=== PATIENT | male | born 1955 | race Caucasian/White ===

== ENCOUNTER → 2017-08-30 | Outpatient (CLI) | payer OTHER ==
[~2017-08-30] MED LIST: ADVAIR HFA; ASPIRIN325 PO; BUTRANS1 EAC2 TD; BUTRANS1 EAC3 TD; BUTRANS1 EAC4 TRANSDERM; BUTRANS1 EACH TRANSDERM; CYMBALTA60 MG PO; DUONEB 2.5-0.5 M3 ML INH; DURAGESIC1 EACH TRANSDERM; FENOFIBRATE160 MG PO; FOLIC ACID1 MG PO; FUROSEMIDE 40 M40 M1 PO; LANTUS100 UNIT/M SUBQ; LISINOPRIL5 MG PO; LOPRESSOR50 PO; LYRICA 50 MG50 MG PO; NORVASC10 MG PO; NOVOLOG100 UNIT/1 SUBQ; PLAVIX 75 MG TA75 M1 PO; SPIRIVA18 MCG INH; TREXALL5 MG PO; VALIUM5 MG PO; VICTOZA0.6 MG/0.1 SUBQ; VOLTAREN GEL 1100 GM TOP; ZANAFLEX4 MG PO
--- NOTE | 2017-09-01 08:15 | PAINCON ---
[address] [address] PAIN MANAGEMENT CONSULTATION Name: NASH TRUJILLO [id number] Admission: 08/30/17 Attend Phys: Rosa M Simon Discharge: Date of : 59 Report #: [id number] THIS REPORT FOR: //name// CC: Chay Grimes The patient is a 61-year-old gentleman being treated for lumbar spondylosis, myofascial pain requiring high risk complex medication management. Last seen in the pain clinic, 07/05/2017. 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 Because of the Plavix, NSAID agents are contraindicated. Last visit, we increased Butrans from 15 to 20 mcg q.7 days. We are using Voltaren gel topically, Cymbalta and Lyrica as co-analgesics. He returns to pain clinic today, noting pain continues to be problematic, right greater than left hip. He does have some tenderness in the left flank. There are some discrete trigger points noted here. The patient overall rates his pain 1-9 on VAS depending on activity. He feels there was no change, increasing from 15-20 mcg on the Butrans patch. The pain in the left flank and upper thoracic paravertebral muscles is "new." He says it feels like a knife, no specific antecedent injury or activity. He continues to go to the gym twice a week, though states he can only get about 5-10 minutes on the treadmill. PHYSICAL EXAMINATION: GENERAL: Shows 6 feet tall, 348-pound gentleman, BMI is approximately 50 kilograms per meter squared. VITAL SIGNS: He has COPD and is oxygen dependent, currently 3 liters nasal cannula yields 93% oxygen saturation. Pulse is 93, respirations 20, blood pressure /58. MUSCULOSKELETAL: Rises from chair using armrests, again trigger points noted in the left thoracic paravertebral muscles. Lower extremity strength is symmetric. Gait is antalgic. We reviewed the fact that opiate medications are being used to provide analgesia adequate to support activities of daily living, not attempting to achieve a specific pain score on the 0-10 Visual Analog Scale. The current opiate medications are providing sufficient analgesia to allow the patient to participate in activities of daily living. The patient is not exhibiting any aberrant behavior suggestive of drug diversion. The patient is not having any adverse reactions to medications. The patient is not suffering from daytime somnolence or mental acuity changes. The patient is managing opiate-induced constipation with appropriate peop-foz-rswhufc agents and dietary considerations. The patient was counseled on concern for caution with operating a motor vehicle [place] [address] PAIN MANAGEMENT CONSULTATION Name: NASH TRUJILLO [facility] [id number] Admission: 08/30/17 Attend Phys: Rosa M Simon Discharge: Date of : 59 Report #: [id number] A physical exam was performed and the patient's functional status was evaluated. All patients with back pain were advised against the bed rest greater than 4 days and were advised to return to normal activities. Pain score assessment was noted and the treatment plan was reviewed with the patient. All current medications, both prescribed and OTC were reviewed and reconciled on the electronic medical record. Tobacco screening was accomplished and smoking cessation was advised when indicated. BMI was noted and diet/exercise modification was recommended for all patients following outside normal parameters. I reviewed with the patient today their responsibilities to safeguard prescription medications, reviewed their responsibility to utilize medications only as prescribed by the physician. They are to seek and receive pain medications only from 1 physician group ( [facility]). They are to use 1 pharmacy and keep the clinic informed if they change pharmacies. Their responsibilities include making followup visits in a timely fashion and to avoid abrupt discontinuation of medication usage. Their responsibilities further include bringing their medications (bottles from the pharmacy with residual pills) to the visit for possible confirmation of pill counts and the patient understands it is their responsibility to submit to random drug screens to ensure both that the medications prescribed are present, and that no other controlled substances are present. All prescriptions provided today were generated electronically. ASSESSMENT: Chronic pain syndrome, requiring high risk complex medication management; history of lumbar spondylosis; new component of myofascial pain with trigger points in the left thoracic paravertebral muscles and superior lumbar paravertebral muscles on left, requiring high risk complex medication management. RECOMMENDATION: 1. We will drop Butrans back from 20 to 15 mcg q.7 days. It seems superfluous to use a higher dose with no change in efficacy. Continue Voltaren gel topically, Cymbalta and Lyrica. Encouraged treadmill use. We will seek authorization for trigger point injections next week. 2. We will add tizanidine low dose 4 mg half to one tablet t.i.d. for spasm, limit 30 tablets. 3. Follow up in 1-2 weeks for trigger point injection or 2 months for medication management. <ELECTRONICALLY SIGNED> By: Harris Grimes DO 09/01/17 0815 0748 [id number] Lisbet Grimes DO /nt
== END ==
LOC: M.PC 02:02
DX: M47.896 Other spondylosis, lumbar region (principal); M79.1 Myalgia; E66.9 Obesity, unspecified; G89.4 Chronic pain syndrome; Z79.899 Other long term (current) drug therapy; Z86.718 Personal history of other venous thrombosis and embolism; Z87.09 Personal history of other diseases of the respiratory system

== ENCOUNTER → 2017-09-27 | Outpatient (CLI) | payer OTHER ==
--- NOTE | 2017-10-02 07:21 | PAINCON ---
[facility] [address] [place] [address] PAIN MANAGEMENT CONSULTATION Name: NASH TRUJILLO Room: [facility] Ashley#: [id number] Admission: 09/27/17 Attend Phys: Rosa M Simon Discharge: Date of : 59 Report #: [id number] THIS REPORT FOR: //name// CC: Chay Grimes The patient is a 61-year-old gentleman prior seen for symptomatic lumbar spondylosis, myofascial pain requiring high risk complex medication management. Last visit on 08/30/2017. Continue patient on baseline medication including Butrans 20 mcg q. 7 days and Voltaren gel topically. The patient also takes Cymbalta and Lyrica. He returns to the pain clinic today noting overall he was doing very well. Rates his pain a 2 on a VAS. Pain is primarily in the middle of the back and bothers him off and on, but states he is much more functional with current medications We reviewed the fact that opiate medications are being used to provide analgesia adequate to support activities of daily living, not attempting to achieve a specific pain score on the 0-10 Visual Analog Scale. The current opiate medications are providing sufficient analgesia to allow the patient to participate in activities of daily living. The patient is not exhibiting any aberrant behavior suggestive of drug diversion. The patient is not having any adverse reactions to medications. The patient is not suffering from daytime somnolence or mental acuity changes. The patient is managing opiate-induced constipation with appropriate fmfw-lgf-rbjrdxm agents and dietary considerations. The patient was counseled on concern for caution with operating a motor vehicle while using opiate medications. A physical exam was performed and the patient's functional status was evaluated. All patients with back pain were advised against the bed rest greater than 4 days and were advised to return to normal activities. Pain score assessment was noted and the treatment plan was reviewed with the patient. All current medications, both prescribed and OTC were reviewed and reconciled on the electronic medical record. Tobacco screening was accomplished and smoking cessation was advised when indicated. BMI was noted and diet/exercise modification was recommended for all patients following outside normal parameters. I reviewed with the patient today their responsibilities to safeguard prescription medications, reviewed their responsibility to utilize medications only as prescribed by the physician. They are to seek and receive pain medications only from 1 physician group ( [facility]). They are to use 1 pharmacy and keep the clinic informed if they change pharmacies. Their responsibilities include making followup visits in a timely fashion and to avoid abrupt discontinuation of medication usage. Their responsibilities further include bringing their medications (bottles from the pharmacy with residual pills) to the visit for possible confirmation of pill counts and the patient understands it is their responsibility to submit to [place] [address] PAIN MANAGEMENT CONSULTATION Name: NASH TRUJILLO [facility] Ramirez#: [id number] Admission: 09/27/17 Attend Phys: Rosa M Simon Discharge: Date of : 59 Report #: [id number] ensure both that the medications prescribed are present, and that no other controlled substances are present. All prescriptions provided today were generated electronically. PHYSICAL EXAMINATION: Shows an obese 61-year-old gentleman, BMI is 46 kilograms per meter squared, 6 feet tall and ____ pounds. Oxygen saturation is 90% on 2 liters nasal cannula, blood pressure 103/60, pulse 97 and respirations 22. Rises from chair using armrest. Axial back pain with diffuse widespread tenderness in the muscle groups. No discrete trigger points are noted at this time. Gait is tandem. The patient notes his insurance company will not pay for generic Voltaren gel (?). I will simply renew all the prescription with dispense as written indicated. Otherwise with the patient stable on baseline medication, we will renew Butrans 20 mcg q. 7 days and tizanidine 4 mg p.r.n., Cymbalta and Lyrica prescriptions unchanged. Follow up in 2 months for reevaluation. <ELECTRONICALLY SIGNED> By: Harris Grimes DO 10/02/17 0721 1533 [id number] Grimes DO /nt
== END ==
LOC: M.PC 01:39
DX: M47.896 Other spondylosis, lumbar region (principal); M79.1 Myalgia

== ENCOUNTER → 2017-10-25 | Outpatient (CLI) | payer OTHER ==
--- NOTE | 2017-10-26 10:21 | PAINCON ---
[address] [address] PAIN MANAGEMENT CONSULTATION Name: NASH TRUJILLO Room: [facility] Ashley#: [id number] Admission: 10/25/17 Attend Phys: Rosa M Simon Discharge: Date of : 59 Report #: [id number] THIS REPORT FOR: //name// CC: Chay Grimes DATE OF SERVICE: 10/25/2017 HISTORY OF PRESENT ILLNESS: The patient is a 62-year-old gentleman being treated for lumbar spondylosis, lumbosacral spondylosis without myelopathy or radiculopathy, axial back pain requiring complex medication management. Last seen in the pain clinic on 09/27/2017. The patient was continued on Butrans 20 mcg, Cymbalta, Lyrica and tizanidine. The patient returns to the pain clinic today. He notes pain continues to be problematic in his legs. He can ride a stationary bike and/or walk on the treadmill about 5 minutes, which he does both devices twice a day. While the patient has been stable on baseline medication, unfortunately his insurance carrier has seen fit to deny coverage for Butrans. We had a prolonged visit today, greater than 25 minutes was spent with the patient, 50% of this time spent reviewing therapeutic options, discussing current risks, benefits with medication management. As the rather robust opiate listed as possible replacement agents, I am uncomfortable with nearly all of them as they are significantly stronger mu receptor opiate agonist than buprenorphine. Ultimately, we have elected to trial rotating to a fentanyl transdural (Duragesic patch) at 12 mcg q.72 hours. We will continue tizanidine 4 mg 1/2-1 tablet 3 times a day for spasm, Lyrica 50 mg t.i.d. and Cymbalta 60 mg daily. We reviewed the fact that opiate medications are being used to provide analgesia adequate to support activities of daily living, not attempting to achieve a specific pain score on the 0-10 Visual Analog Scale. The current opiate medications are providing sufficient analgesia to allow the patient to participate in activities of daily living. The patient is not exhibiting any aberrant behavior suggestive of drug diversion. The patient is not having any adverse reactions to medications. The patient is not suffering from daytime somnolence or mental acuity changes. The patient is managing opiate-induced constipation with appropriate wtps-fcu-yabtpkg agents and dietary considerations. The patient was counseled on concern for caution with operating a motor vehicle while using opiate medications. A physical exam was performed and the patient's [place] [address] PAIN MANAGEMENT CONSULTATION Name: NASH TRUJILLO Room: [facility]#: [id number] Admission: 10/25/17 Attend Phys: Rosa M Simon Discharge: Date of : 59 Report #: [id number] All patients with back pain were advised against the bed rest greater than 4 days and were advised to return to normal activities. Pain score assessment was noted and the treatment plan was reviewed with the patient. All current medications, both prescribed and OTC were reviewed and reconciled on the electronic medical record. Tobacco screening was accomplished and smoking cessation was advised when indicated. BMI was noted and diet/exercise modification was recommended for all patients following outside normal parameters. I reviewed with the patient today their responsibilities to safeguard prescription medications, reviewed their responsibility to utilize medications only as prescribed by the physician. They are to seek and receive pain medications only from 1 physician group ( [facility]). They are to use 1 pharmacy and keep the clinic informed if they change pharmacies. Their responsibilities include making followup visits in a timely fashion and to avoid abrupt discontinuation of medication usage. Their responsibilities further include bringing their medications (bottles from the pharmacy with residual pills) to the visit for possible confirmation of pill counts and the patient understands it is their responsibility to submit to random drug screens to ensure both that the medications prescribed are present, and that no other controlled substances are present. All prescriptions provided today were generated electronically. PHYSICAL EXAMINATION: GENERAL: Shows a 62-year-old gentleman, supplemental oxygen at 2 liters per minute yielding oxygen saturation of 98%. Morbidly obese, 6 feet tall, 343 pounds, BMI is 46.5 kilograms per meter squared. VITAL SIGNS: Blood pressure 128/60, pulse 90, respirations 20. MUSCULOSKELETAL: Uses a walker for ambulation, difficult time rising from the chair. Diffuse tenderness across the low back and the lumbar facet pain is exacerbated with rotation and side bending. Lower extremity strength is diminished, but symmetric. Straight leg raise negative. ASSESSMENT: Symptomatic lumbar and lumbosacral spondylosis without myelopathy or radiculopathy, axial back pain, requiring complex medication management. RECOMMENDATION: Prolonged discussion with the patient today about therapeutic options. We will trial Duragesic 12 mcg q.72 hours along with baseline medication including Lyrica, Cymbalta and tizanidine. The patient was discharged in good and stable condition after a prolonged visit, greater than 50% of the 25-minute visit was spent counseling the patient. <ELECTRONICALLY SIGNED> By: Harris Grimes DO 10/26/17 1021 1227 [id number] Lisbet Grimes DO /nt
== END ==
LOC: M.PC 03:37
DX: M47.817 Spondylosis without myelopathy or radiculopathy, lumbosacral region (principal); M54.9 Dorsalgia, unspecified; Z79.899 Other long term (current) drug therapy

== ENCOUNTER → 2017-11-22 | Outpatient (CLI) | payer OTHER ==
--- NOTE | 2017-11-24 09:51 | PAINCON ---
[address] [address] PAIN MANAGEMENT CONSULTATION Name: NASH TRUJILLO Room: [facility]#: [id number] Admission: 11/22/17 Attend Phys: Rosa M Simon Discharge: Date of : 59 Report #: [id number] THIS REPORT FOR: //name// CC: Chay Grimes DATE OF SERVICE: 11/22/2017 The patient is a 62-year-old gentleman being treated for lumbar spondylosis without myelopathy, SI joint dysfunction, chronic axial back pain requiring complex medication management. Last seen in pain clinic 10/25/2017. We rotated from Butrans to Duragesic 12 mcg per insurance's request. He returns to pain clinic today noting that this has actually been fairly efficacious. He notes he was able to walk about [facility] through all these, which for him had been impossible. He does use oxygen 3 liters per minute supplementation. At long last, he is now 28 days a nonsmoker. He does have significant coronary artery disease, in fact was disabled secondary to same. He is morbidly obese with a BMI of 46.2 kilograms per meter squared. He has a fairly large ventral hernia at the inferior aspect of his sternotomy incision. He notes his subjective pain score is 5 on VAS. PHYSICAL EXAMINATION: Shows 6-foot tall, 340-pound gentleman. As noted, BMI is 46.2 kilograms per meter squared. Blood pressure 138/66, pulse 85, respirations 20. Alert and oriented to person, place and time, judged to be a reasonable historian. Supplemental oxygen at 3 liters yields 94% saturation. He rise from the chair using the armrest. Has diffuse tenderness across the low back. No discrete trigger points are noted. Lumbar flexion is limited. Gait is modestly antalgic. Tender over the SI joints with some associated low back pain. Positive Angie test. Pelvic distraction is difficult due to the girth, positive Gaenslen's test. We reviewed the fact that opiate medications are being used to provide analgesia adequate to support activities of daily living, not attempting to achieve a specific pain score on the 0-10 Visual Analog Scale. The current opiate medications are providing sufficient analgesia to allow the patient to participate in activities of daily living. The patient is not exhibiting any aberrant behavior suggestive of drug diversion. The patient is not having any adverse reactions to medications. The patient is not suffering from daytime somnolence or mental acuity changes. The patient is managing opiate-induced constipation with appropriate czeh-rcl-bprovrl agents and dietary considerations. The patient was counseled on concern for caution with operating a motor vehicle while using opiate medications. A physical exam was performed and the patient's functional status was evaluated. All patients with back pain were advised against the bed rest greater than 4 days and were advised to return to normal activities. [place] [address] PAIN MANAGEMENT CONSULTATION Name: TRUJILLONASH Solitario [facility] [id number] Admission: 11/22/17 Attend Phys: Rosa M Simon Discharge: Date of : 59 Report #: [id number] noted and the treatment plan was reviewed with the patient. All current medications, both prescribed and OTC were reviewed and reconciled on the electronic medical record. Tobacco screening was accomplished and smoking cessation was advised when indicated. BMI was noted and diet/exercise modification was recommended for all patients following outside normal parameters. I reviewed with the patient today their responsibilities to safeguard prescription medications, reviewed their responsibility to utilize medications only as prescribed by the physician. They are to seek and receive pain medications only from 1 physician group ( [facility]). They are to use 1 pharmacy and keep the clinic informed if they change pharmacies. Their responsibilities include making followup visits in a timely fashion and to avoid abrupt discontinuation of medication usage. Their responsibilities further include bringing their medications (bottles from the pharmacy with residual pills) to the visit for possible confirmation of pill counts and the patient understands it is their responsibility to submit to random drug screens to ensure both that the medications prescribed are present, and that no other controlled substances are present. All prescriptions provided today were generated electronically. ASSESSMENT: Axial back pain, chronic pain syndrome requiring complex medication management, lumbar spondylosis with sacroiliac mediated pain. RECOMMENDATIONS: We will continue Duragesic 12 mcg q.72h. Continue tizanidine as needed for spasm. Cymbalta and Valium were provided by Dr. Dooley. He does use Lyrica 50 mg t.i.d. We will renew current medications unchanged. We will seek authorization for bilateral SI joint injections under fluoroscopy at next visit. <ELECTRONICALLY SIGNED> By: Harris Grimes DO 11/24/17 0951 [id number] Grimes DO /nt
== END ==
LOC: M.PC 02:27
DX: M47.816 Spondylosis without myelopathy or radiculopathy, lumbar region (principal); G89.4 Chronic pain syndrome; M53.3 Sacrococcygeal disorders, not elsewhere classified; Z79.899 Other long term (current) drug therapy

== ENCOUNTER → 2017-12-20 | Outpatient (CLI) | payer OTHER ==
--- NOTE | 2017-12-21 09:37 | PAINCON ---
[address] [address] PAIN MANAGEMENT CONSULTATION Name: NASH TRUJILLO Room: [facility]#: [id number] Admission: 12/20/17 Attend Phys: Rosa M Simon Discharge: Date of : 59 Report #: [id number] THIS REPORT FOR: //name// CC: Chay Grimes DATE OF SERVICE: 12/20/2017 The patient is a 62-year-old gentleman, last seen in the Pain Clinic on 10/25/2017. He has ongoing SI mediated pain, lumbar spondylosis, axial back pain. Comorbidities include COPD and morbid obesity with a BMI of 45.4 kg/m2. Last visit on 11/22/2017, we continued patient on Duragesic 12 mcg q. 72 hours. I discussed bilateral SI joint injection under fluoroscopy today. He presents to Pain Clinic today with ongoing axial back pain, tender over the SI area. It does not radiate into the legs. Positive ELIZABETH test bilaterally. PHYSICAL EXAMINATION: Otherwise, unchanged from prior. We reviewed the fact that opiate medications are being used to provide analgesia adequate to support activities of daily living, not attempting to achieve a specific pain score on the 0-10 Visual Analog Scale. The current opiate medications are providing sufficient analgesia to allow the patient to participate in activities of daily living. The patient is not exhibiting any aberrant behavior suggestive of drug diversion. The patient is not having any adverse reactions to medications. The patient is not suffering from daytime somnolence or mental acuity changes. The patient is managing opiate-induced constipation with appropriate bvnn-jer-ntuuxii agents and dietary considerations. The patient was counseled on concern for caution with operating a motor vehicle while using opiate medications. A physical exam was performed and the patient's functional status was evaluated. All patients with back pain were advised against the bed rest greater than 4 days and were advised to return to normal activities. Pain score assessment was noted and the treatment plan was reviewed with the patient. All current medications, both prescribed and OTC were reviewed and reconciled on the electronic medical record. Tobacco screening was accomplished and smoking cessation was advised when indicated. BMI was noted and diet/exercise modification was recommended for all patients following outside normal parameters. I reviewed with the patient today their responsibilities to safeguard prescription medications, reviewed their responsibility to utilize medications only as prescribed by the physician. They are to seek and receive pain medications only from 1 physician group ( [facility]). They are to use 1 pharmacy and keep the clinic informed if they change pharmacies. Their responsibilities include making followup visits in a [place] [address] PAIN MANAGEMENT CONSULTATION Name: NASH TRUJILLO [id number] Admission: 12/20/17 Attend Phys: Rosa M Simon Discharge: Date of : 59 Report #: [id number] abrupt discontinuation of medication usage. Their responsibilities further include bringing their medications (bottles from the pharmacy with residual pills) to the visit for possible confirmation of pill counts and the patient understands it is their responsibility to submit to random drug screens to ensure both that the medications prescribed are present, and that no other controlled substances are present. All prescriptions provided today were generated electronically. ASSESSMENT: Axial back pain requiring complex medication management, history of chronic obstructive pulmonary disease, and lumbar spondylosis. RECOMMENDATION: 1. Renew Duragesic 12 mcg q. 72 hours. 2. Acute exacerbation of SI mediated pain, lumbosacral spondylosis without myelopathy. PROCEDURE: Bilateral SI joint injection under fluoroscopy. PROCEDURE NOTE: After written and informed consent was obtained including risk of infection, nerve trauma, increased pain and weakness, the patient wishes to proceed. The patient was taken to the fluoroscopy suite, placed in the prone position. The sacroiliac joint was visualized using the C-arm, turned in an oblique fashion to align the joint. The skin overlying the area was cleansed with ChloraPrep. Skin wheal with Xylocaine was raised. A 22 gauge spinal needle was inserted into the inferior aspect of the joint. A low volume extension tubing was then attached to the needle after the stylet was removed. Negative aspiration was accomplished. A 1 mL of Omnipaque was injected which showed spread within the SI joint. 40 mg triamcinolone plus 2 mL of 0.5% preservative-free bupivacaine was injected into the joint. Needle was removed. Attention was then turned to the contralateral joint which was treated in an identical fashion. After both needles were removed the prep was washed off. Two Band-Aids were applied over the puncture sites. The patient was allowed to ambulate to the recovery room, monitored for an appropriate period of time, discharged in good and stable condition. <ELECTRONICALLY SIGNED> By: Harris Grimes DO 12/21/17 0937 [id number] Grimes DO /nt
== END | disposition home or self-care (01) ==
LOC: M.PC 04:37
DX: M53.3 Sacrococcygeal disorders, not elsewhere classified (principal); M47.816 Spondylosis without myelopathy or radiculopathy, lumbar region; M47.817 Spondylosis without myelopathy or radiculopathy, lumbosacral region; J44.9 Chronic obstructive pulmonary disease, unspecified; E66.01 Morbid (severe) obesity due to excess calories; Z68.42 Body mass index [BMI] 45.0-49.9, adult; Z79.891 Long term (current) use of opiate analgesic; Z88.8 Allergy status to other drugs, medicaments and biological substances; Z79.899 Other long term (current) drug therapy; Z79.82 Long term (current) use of aspirin; Z79.4 Long term (current) use of insulin

== ENCOUNTER → 2018-01-17 | Outpatient (CLI) | payer OTHER ==
--- NOTE | 2018-01-18 07:50 | PAINCON ---
[address] [address] PAIN MANAGEMENT CONSULTATION Name: NASH TRUJILLO Room: [facility]#: [id number] Admission: 01/17/18 Attend Phys: Rosa M Simon Discharge: Date of : 59 Report #: [id number] THIS REPORT FOR: //name// CC: Chay Grimes DATE OF SERVICE: 01/17/2018 HISTORY OF PRESENT ILLNESS: The patient is a 62-year-old gentleman, prior treated for ongoing lumbar and lumbosacral spondylosis, bilateral SI mediated pain, axial back pain requiring complex medication management. He has been stable on Duragesic 12 mcg q.72 hours. We did bilateral SI joint injections, last visit. Comorbidity includes morbid obesity and COPD. He returns to pain clinic today. He has a new pain in the left flank, seems to increase with movement. Does have trigger points in the left T8-T12 paravertebral muscles. He rates his pain 8-9 on a VAS. Notes overall the Duragesic has been helpful. Does use Voltaren gel topically and tizanidine for spasm. On further discussion with the patient, it turns out he is actually using the tizanidine fairly infrequently. Notes pain occurred after a fall, seems to be getting worse. PHYSICAL EXAMINATION: GENERAL: Shows a 6 feet tall, 337 pounds gentleman, BMI is 46.3 kilograms per meter squared. VITAL SIGNS: Oxygen saturation 95% with 3 liters per minute nasal cannula, blood pressure is 109/69, pulse 94, respirations 20. MUSCULOSKELETAL: Rises from chair using the armrest. Diffuse tenderness in the left low thoracic paravertebral muscles. No discrete trigger points are noted. Range of motion is modestly limited. Markedly endomorphic build. Gait is somewhat antalgic. He is wearing his Duragesic patch in the right upper shoulder. Random drug screen at last visit 12/21/2017, was positive for nordazepam, diazepam and nicotine. Negative for fentanyl, though he was wearing his patch then as he is now. It may simply be a low enough blood level that is not being picked up on the buccal drug swab. If concerned, we may consider urine drug screen, though he showed no aberrant behavior suggestive of drug diversion. We reviewed the fact that opiate medications are being used to provide analgesia adequate to support activities of daily living, not attempting to achieve a specific pain score on the 0-10 Visual Analog Scale. The current opiate medications are providing sufficient analgesia to allow the patient to participate in activities of daily living. The patient is not exhibiting any aberrant behavior suggestive of drug diversion. The [place] [address] PAIN MANAGEMENT CONSULTATION Name: NASH TRUJILLO [id number] Admission: 01/17/18 Attend Phys: Rosa M Simon Discharge: Date of : 59 Report #: [id number] adverse reactions to medications. The patient is not suffering from daytime somnolence or mental acuity changes. The patient is managing opiate-induced constipation with appropriate luzc-zkp-quuszpf agents and dietary considerations. The patient was counseled on concern for caution with operating a motor vehicle while using opiate medications. A physical exam was performed and the patient's functional status was evaluated. All patients with back pain were advised against the bed rest greater than 4 days and were advised to return to normal activities. Pain score assessment was noted and the treatment plan was reviewed with the patient. All current medications, both prescribed and OTC were reviewed and reconciled on the electronic medical record. Tobacco screening was accomplished and smoking cessation was advised when indicated. BMI was noted and diet/exercise modification was recommended for all patients following outside normal parameters. I reviewed with the patient today their responsibilities to safeguard prescription medications, reviewed their responsibility to utilize medications only as prescribed by the physician. They are to seek and receive pain medications only from 1 physician group ( [facility]). They are to use 1 pharmacy and keep the clinic informed if they change pharmacies. Their responsibilities include making followup visits in a timely fashion and to avoid abrupt discontinuation of medication usage. Their responsibilities further include bringing their medications (bottles from the pharmacy with residual pills) to the visit for possible confirmation of pill counts and the patient understands it is their responsibility to submit to random drug screens to ensure both that the medications prescribed are present, and that no other controlled substances are present. All prescriptions provided today were generated electronically. ASSESSMENT: Axial back pain, lumbar spondylosis and lumbosacral spondylosis without myelopathy with multiple comorbidities including chronic obstructive pulmonary disease and morbid obesity. RECOMMENDATION: Continue Duragesic 12 mcg q.72 hours. I have taken the liberty of writing for 2 months of current medication. Encouraged him to use the tizanidine 4 mg as needed for spasm, we can phone this if he needs a renewal. Continue Voltaren gel topically and Cymbalta 60 mg 1 a day. I did suggest the patient follow up with his primary care physician to see if there are any other pain clinic providers in his insurance network. I am leaving the area. With the low dose opiate, his general office associate physician may be comfortable writing for Duragesic 12 mcg q.72 hours ongoing. If, however, cannot find another physician, he may be able to get on the schedule with Dr. Medardo Beasley at [facility]. He is taking over a number of my patients; however, he will not be able to see all of the [place] [address] PAIN MANAGEMENT CONSULTATION Name: NASH TRUJILLO Room: [facility]#: [id number] Admission: 01/17/18 Attend Phys: Rosa M Simon Discharge: Date of : 59 Report #: [id number] and my clinics. We will reach out to the patient's primary care physician in this regard. Discharged in good and stable condition with 2 months of current medication. <ELECTRONICALLY SIGNED> By: Harris Grimes DO 01/18/18 0750 [id number] Grimes DO /nt
== END ==
LOC: M.PC 03:58
DX: M47.817 Spondylosis without myelopathy or radiculopathy, lumbosacral region (principal); M47.816 Spondylosis without myelopathy or radiculopathy, lumbar region; J44.9 Chronic obstructive pulmonary disease, unspecified; E66.01 Morbid (severe) obesity due to excess calories; Z79.899 Other long term (current) drug therapy